=== PATIENT | male | born 1995 | race Caucasian/White ===

== ENCOUNTER 2019-05-21 04:49 | Emergency (ER) | payer OTHER ==
[~2019-05-21] VITALS: Ht 165.1 cm; Wt 72.7 kg
[2019-05-21 05:20] LABS: HEMATOCRIT 45.7 % (42.0-52.0); HEMOGLOBIN 16.1 g/dl (13.5-17.5); MEAN CORPUSCULAR HEMOGLOBIN 31.9 pg (27.0-33.0); MEAN CORPUSCULAR HGB CONC 35.2 g/dl (32.0-36.5); MEAN CORPUSCULAR VOLUME 90.7 fl (80.0-96.0); PLATELET COUNT, AUTOMATED 345 10^3/uL (150-450); RED BLOOD COUNT 5.04 10^6/uL (4.30-6.10); WHITE BLOOD COUNT 7.2 10^3/uL (4.0-10.0)
[2019-05-21 05:41] LABS: AMPHETAMINES LEVEL URINE NEGATIVE (NEGATIVE); BARBITURATES URINE NEGATIVE (NEGATIVE); BENZODIAZEPINES URINE NEGATIVE (NEGATIVE); CANNABINOIDS URINE NEGATIVE (NEGATIVE); COCAINE METABOLITE URINE NEGATIVE (NEGATIVE); METHADONE URINE NEGATIVE (NEGATIVE); OPIATES URINE NEGATIVE (NEGATIVE); PHENCYCLIDINE URINE NEGATIVE (NEGATIVE)
[2019-05-21 05:53] LABS: ACETAMINOPHEN LEVEL < 2.0 UG/ML (10.0-30.0); ALBUMIN 4.6 GM/DL (3.2-5.2); ALT/SGPT 45 U/L (12-78); BILIRUBIN,DIRECT 0.3 MG/DL (0.0-0.2); BILIRUBIN,TOTAL 0.8 MG/DL (0.2-1.0); BLOOD UREA NITROGEN 7 MG/DL (7-18); CALCIUM LEVEL 8.7 MG/DL (8.5-10.1); CARBON DIOXIDE LEVEL 28 MEQ/L (21-32); CHLORIDE LEVEL 109 MEQ/L (98-107); ETHYL ALCOHOL (ETHANOL) 0.224 % (0.000-0.010); GLOMERULAR FILTRATION RATE > 60.0 (>60); GLUCOSE, FASTING 108 MG/DL (70-100); POTASSIUM SERUM 3.8 MEQ/L (3.5-5.1); SALICYLATE LEVEL < 1.7 MG/DL (5.0-30.0); SODIUM LEVEL 144 MEQ/L (136-145); TOTAL PROTEIN 8.4 GM/DL (6.4-8.2)
[2019-05-21 15:59] VITALS: BP 140/71
--- NOTE | 2019-05-21 16:20 | MHCRPDOC ---
[facility] Consultation Consultation DATE OF CONSULTATION: 05/21/19 CONSULTATION REQUESTED BY: Dr. Julian, ER Chief Complaint Consultation for safety in ER. 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 He reports that he was intoxicated and felt that the statements were not be related, thought they're seeing these in confidence. He describes that he was unclear about the situation and report he had at the time no intention of acting on them; and that subsequently after becoming sober, he had no suicidal thoughts. He reports that he did not notice any major motivation for calling at time. He reports some difficulty with his girlfriend. However, his supervisor sound technician was present who has known him for many years and had reported that prior to this, he had had some anxiety for which he was seeing a therapist for, but that he had otherwise been in his normal state of health with no problems and this was unexpected. Reports that he had been sober for 3 months prior from alcohol. Review Of Systems Depression: The patient denies any episodes of unprovoked depressed mood associated with neurovegetative symptoms lasting longer than 2 weeks with symptoms present nearly everyday. Anxiety: The patient denies any excessive worry associated with physical symptoms. They deny any experience of discreet panic in the past. Renetta: The patient denies any episodes of euphoria/dysphoria associated with decreased need for sleep, hedonism, talkatively or impulsivity lasting longer th an 5 days. Psychotic: The patient denies any experiences of auditory or visual hallucinations. They deny any episodes of paranoia or delusional thinking in the past Trauma: The patient denies any traumatic events associated with nightmares or intrusive thoughts. Borderline: The patient screens negative for borderline personality at this junction. Past Psychiatric History The patient reports no history of psychiatric admissions, medication trials and reports following with a therapist intermittently for anxiety. Allergies Please see below. Family Psychiatric History Reports that his brother by suicide when he was 17. 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 He reports that he lives in the [facility]. He has a relationship with his girlfriend for the last year or so, but that the relationship is on again, off again. He reports that he doesn't drink significantly, but he reports that at time that he felt it. Had no major problems in his life otherwise. He reports he graduated high school, wants to go to college. He enlisted 3 years ago. He has no history of deployments. He reported that he met his girlfriend online and that she lives in [place] and that the long-distance relationship is stressful. 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 Substance Abuse History The patient reports that he does drink alcohol fairly intensely and has been in the substance abuse program that he is self-enrolled in and had been sober for 3 months prior to the events of the evening in question. Reports that he vapes nicotine. Denies any cannabis, opioids or other illicit substance use. Medical History Patient has no significant past medical history. Mental Status Examination General: Well dressed with good hygiene Speech: Spontaneous and fluid Thought processes: Linear and logical MSK: Smooth and coordinated gait, no signs of tremors or involuntary orofacial movements Thought content: Future orientated Abstract reasoning, and computation: Intact Description of associations: Intact Description of abnormal or psychotic thoughts: Denies any suicidal or homicidal ideation. Denies any auditory or visual hallucinations. Does not appear to be responding to internal stimuli. Does not appear to be endorsing any bizarre or paranoid ideation. Judgment: fair Insight: fair Orientation: Alert and orientated 3 Cognition: Grossly normal Recent and remote memory: Intact Attention span and concentration: Intact Fund of knowledge: Adequate Mood: "okay" Affect: Euthymic with a full range Diagnoses Alcohol use disorder, moderate. Nicotine use disorder, moderate. 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 After he had become sober, he reported no major problems and that he had had no major depression or significant anxiety prior. His collateral information appears confirmed that this was likely related to alcohol and not related to a major mental illness at this time. The patient does not meet involuntary criteria in my clinical judgment as he denies any suicidal or homicidal ideation while he's sober. Collateral information confirms he has been taking care of himself and has been in his usual state of health. He does not demonstrate any signs or symptoms of major mental illness that I can observe that would give me grounds to involuntarily commit him. He declines wanting a voluntary admission to Psychiatry and thus must be discharged in [place]. I recommended the patient cease vaping nicotine due to recent Department of Health regulations and recommendations due to the lung disease and that he cease drinking alcohol as that would be a primary issue in his safety. He will follow up with addiction. Time Spent 30 minutes. Monday Vital Signs Vital Signs Date Time Temp Pulse Resp B/P (MAP) Pulse Ox O2 Delivery O2 Flow Rate FiO2 05/21/19 15:59 98.3 63 16 140/71 (94) 99 05/21/19 05:09 Room Air Laboratory Data 24H Labs Laboratory Tests 2 05/21/19 05:07: Nucleated Red Blood Cells % (auto) 0.0, Anion Gap 7L, Glomerular Filtration Rate > 60.0, Calcium Level 8.7, Aspartate Amino Transf (AST/SGOT) 29, Alanine Aminotransferase (ALT/SGPT) 45, Alkaline Phosphatase 56, Total Bilirubin 0.8, Direct Bilirubin 0.3H, Total Protein 8.4H, Albumin 4.6, Albumin/Globulin Ratio 1.21, Thyroid Stimulating Hormone (TSH) 2.700, Salicylates Level < 1.7L, Urine Amphetamines Screen NEGATIVE, Urine Benzodiazepines Screen NEGATIVE, Urine Opiates Screen NEGATIVE, Urine Methadone Screen NEGATIVE, Acetaminophen Level < 2.0L, Urine Barbiturates Screen NEGATIVE, Urine Phencyclidine Screen NEGATIVE, Urine Cocaine Metabolite Screen NEGATIVE, Urine Cannabinoids Screen NEGATIVE, Ethyl Alcohol Level 0.224H Home Medications Current Medications Current Medications Medications (Trade) Dose Ordered Sig/Lacho Route PRN Reason Start Time Stop Time Status Last Admin Dose Admin Home Med (Med Rec Complete!) ASDIRECTED XX 05/21/19 13:00 05/21/19 13:00 DC No Active Prescriptions or Reported Meds Allergies Coded Allergies: No Known Allergies (Unverified , 05/21/19) BARRY NEVILLE DO May 21, 2019 16:20
== END 2019-05-21 16:00 | disposition home or self-care (01) ==
LOC: M ED 04:49
DX: F10.129 Alcohol abuse with intoxication, unspecified (principal); F41.1 Generalized anxiety disorder; Z79.899 Other long term (current) drug therapy
CPT/HCPCS: 36415; 80048; 80076; 80307; 84443; 85027; 99284; G0480

== ENCOUNTER 2019-06-09 03:52 | Emergency (ER) | payer OTHER ==
[~2019-06-09] VITALS: Ht 165.1 cm; Wt 75.9 kg
[2019-06-09 04:35] LABS: HEMATOCRIT 46.2 % (42.0-52.0); HEMOGLOBIN 16.4 g/dl (13.5-17.5); MEAN CORPUSCULAR HGB CONC 35.5 g/dl (32.0-36.5); MEAN CORPUSCULAR VOLUME 90.2 fl (80.0-96.0); PLATELET COUNT, AUTOMATED 330 10^3/uL (150-450); RED BLOOD COUNT 5.12 10^6/uL (4.30-6.10); WHITE BLOOD COUNT 7.7 10^3/uL (4.0-10.0)
[2019-06-09 05:01] LABS: AMPHETAMINES LEVEL URINE NEGATIVE (NEGATIVE); BARBITURATES URINE NEGATIVE (NEGATIVE); BENZODIAZEPINES URINE NEGATIVE (NEGATIVE); CANNABINOIDS URINE NEGATIVE (NEGATIVE); COCAINE METABOLITE URINE NEGATIVE (NEGATIVE); METHADONE URINE NEGATIVE (NEGATIVE); OPIATES URINE NEGATIVE (NEGATIVE); PHENCYCLIDINE URINE NEGATIVE (NEGATIVE)
[2019-06-09 05:31] LABS: ACETAMINOPHEN LEVEL < 2.0 UG/ML (10.0-30.0); ALBUMIN 4.6 GM/DL (3.2-5.2); ALT/SGPT 48 U/L (12-78); BILIRUBIN,DIRECT 0.2 MG/DL (0.0-0.2); BILIRUBIN,TOTAL 0.8 MG/DL (0.2-1.0); BLOOD UREA NITROGEN 10 MG/DL (7-18); CALCIUM LEVEL 8.5 MG/DL (8.5-10.1); CARBON DIOXIDE LEVEL 28 MEQ/L (21-32); CHLORIDE LEVEL 108 MEQ/L (98-107); ETHYL ALCOHOL (ETHANOL) 0.276 % (0.000-0.010); GLOMERULAR FILTRATION RATE > 60.0 (>60); GLUCOSE, FASTING 96 MG/DL (70-100); POTASSIUM SERUM 4.5 MEQ/L (3.5-5.1); SALICYLATE LEVEL < 1.7 MG/DL (5.0-30.0); SODIUM LEVEL 143 MEQ/L (136-145); TOTAL PROTEIN 8.3 GM/DL (6.4-8.2)
--- NOTE | 2019-06-09 17:59 | MHCRPDOC ---
[facility] Consultation Consultation New Patient Curt Malave MRN: N/A Date of : N/A Date of Service: 06/09/2019 Chief Complaint Consultation for safety in ER. 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 The patient required significant amount of time to detox and then subsequently when interviewed described that he had become intoxicated and had relapsed on alcohol. He has completed the [facility]'s alcohol rehab program, however, he reports he had significant cravings and then when he drinks he isolates, but he flatly denies that he said any suicidal thoughts, but he feels his friend may have misinterpreted him when he asked to be alone. When the patient was met with he was not demonstrating any signs or symptoms of major mental illness after he had become sober from alcohol and he reports that he wants help for his alcoholism and is open to medications. The psychosocial information is extracted from my previous assessment and updated as appropriate with the patient. Review Of Systems Depression: No changes from previous assessment. Anxiety: No changes. Renetta: No changes. Psychotic: No changes. Trauma: No changes. Borderline: No changes. Past Psychiatric History The patient reports no history of psychiatric admissions, medication trials and reports following with a therapist intermittently for anxiety. Allergies Please see below. Family Psychiatric History Reports that his brother by suicide when he was 17. 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 He reports that he lives in the [facility]. He has a relationship with his girlfriend for the last y ear or so, but that the relationship is on again, off again. He reports that he doesn't drink significantly, but he reports that at time that he felt it. Had no major problems in his life otherwise. He reports he graduated high school, wants to go to college. He enlisted 3 years ago. He has no history of deployments. He reported that he met his girlfriend online and that she lives in [place] and that the long-distance relationship is stressful. 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 Substance Abuse History The patient reports that he does drink alcohol fairly intensely and has been in the substance abuse program that he is self-enrolled in and had been sober for 3 months prior to the events of the evening in question. Reports that he vapes nicotine. Denies any cannabis, opioids or other illicit substance use. Medical History Patient has no significant past medical history. Mental Status Examination General: Well dressed with good hygiene Speech: Spontaneous and fluid Thought processes: Linear and logical MSK: Smooth and coordinated gait, no signs of tremors or involuntary orofacial m ovements Thought content: Future orientated Abstract reasoning, and computation: Intact Description of associations: Intact Description of abnormal or psychotic thoughts: Denies any suicidal or homicidal ideation. Denies any auditory or visual hallucinations. Does not appear to be responding to internal stimuli. Does not appear to be endorsing any bizarre or paranoid ideation. Judgment: fair Insight: fair Orientation: Alert and orientated 3 Cognition: Grossly normal Recent and remote memory: Intact Attention span and concentration: Intact Fund of knowledge: Adequate Mood: "okay" Affect: Euthymic with a full range Diagnoses Alcohol use disorder, severe. 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 Reportedly had made some concerning statements. However, the information does not appear to demonstrate any significant change from when the patient becomes intoxicated at his baseline. After he becomes sober, he does not demonstrate any signs or symptoms of major mental illness that can be determined at this time. The patient declines voluntary and does not meet involuntary criteria in my clinical judgment as when he's sober he has no suicidal or homicidal ideation and he appears able to take care of his basic needs and thus must be discharged in [place]. He is open to naltrexone treatment for his alcoholism. His dynamic risk factors appear to be at their baseline based on the preponderance of the information above. Recommended the patient to cease alcohol and get significant alcoholism treatment as well as 12-step Programs as his alcoholism poses a significant threat to his health. Initial Treatment Plan We'll send patient home with a script for naltrexone 50 mg. Discuss risks, benefits, and potential side effects. Discussed with patient to follow up with outpatient primary care or psychiatry/establish in order to continue on this me dication to have monitoring. At this time the patient does not meet involuntary criteria and declines voluntary. Time Spent 30 minutes. Monday Vital Signs Vital Signs Date Time Temp Pulse Resp B/P (MAP) Pulse Ox O2 Delivery O2 Flow Rate FiO2 06/09/19 13:34 97.7 118 20 159/67 (97) 97 Room Air Laboratory Data 24H Labs Laboratory Tests 2 06/09/19 04:08: Nucleated Red Blood Cells % (auto) 0.0, Anion Gap 7L, Glomerular Filtration Rate > 60.0, Calcium Level 8.5, Aspartate Amino Transf (AST/SGOT) 36, Alanine Aminotransferase (ALT/SGPT) 48, Alkaline Phosphatase 61, Total Bilirubin 0.8, Direct Bilirubin 0.2, Total Protein 8.3H, Albumin 4.6, Albumin/Globulin Ratio 1.24, Thyroid Stimulating Hormone (TSH) 2.210, Salicylates Level < 1.7L, Urine Amphetamines Screen NEGATIVE, Urine Benzodiazepines Screen NEGATIVE, Urine Opiates Screen NEGATIVE, Urine Methadone Screen NEGATIVE, Acetaminophen Level < 2.0L, Urine Barbiturates Screen NEGATIVE, Urine Phencyclidine Screen NEGATIVE, Urine Cocaine Metabolite Screen NEGATIVE, Urine Cannabinoids Screen NEGATIVE, Ethyl Alcohol Level 0.276H Home Medications Scheduled Naltrexone HCl (Naltrexone HCl) 50 Mg Tablet, 1 TAB PO DAILY for alcohol Allergies Coded Allergies: No Known Allergies (Unverified , 05/21/19) BARRY NEVILLE DO Jun 09, 2019 17:59
[2019-06-09] MEDS ORDERED: NALT50TA4 PO (18:00)
[2019-06-09 18:44] VITALS: BP 142/92
== END 2019-06-09 18:47 | disposition home or self-care (01) ==
LOC: M ED 03:52
DX: F10.10 Alcohol abuse, uncomplicated (principal); Y90.1 Blood alcohol level of 20-39 mg/100 ml; Z79.899 Other long term (current) drug therapy; F17.210 Nicotine dependence, cigarettes, uncomplicated
CPT/HCPCS: 36415; 80048; 80076; 80307; 84443; 85027; 99284; G0480